=== PATIENT | male | born 1990 | race Caucasian/White ===

== ENCOUNTER 2020-10-10 20:25 | Emergency (ER) | payer SELFPAY ==
[~2020-10-10] VITALS: Ht 162.6 cm; Wt 63.0 kg
[2020-10-10 20:49] VITALS: BP 149/94
== END 2020-10-10 23:00 | disposition left against medical advice (07) ==
LOC: ER 20:25
DX: R07.89 Other chest pain (principal); Z53.21 Procedure and treatment not carried out due to patient leaving prior to being seen by health care provider
CPT/HCPCS: 93005